=== PATIENT | female | born 1985 | race African-American/Black ===

== ENCOUNTER 2020-01-29 23:03 | Emergency (ER) | payer SELFPAY ==
[2020-01-29] MEDS ORDERED: Ondansetron ODT 4 MG TAB ONE (23:28)
[2020-01-29 23:49] LABS: #Basophils 0.1 thou/uL (0.0-0.2); #Eosinphils 0.1 thou/uL (0.0-0.7); #Lymphocytes 2.4 thou/uL (1.20-3.40); #Monocytes 0.6 thou/uL (0.11-0.59); %Basophils 0.9 % (0.0-1.0); %Eosinophils 0.9 % (0.0-10.0); %Lymphocytes 26.2 % (21.0-51.0); %Monocytes 6.9 % (0.0-10.0); %Neutrophils 65.1 % (42.0-75.0); Hemoglobin 11.6 g/dL (12.0-16.0); Mean Corpuscular HGB CONC 32.4 g/dL (32.0-36.0); Mean Corpuscular Hemoglobin 28.2 pg (27.0-31.0); Mean Platelet Volume 8.3 fL (7.4-10.4); Platelet Count 395 thou/uL (130-400); RBC Distribution Width 12.3 % (11.5-14.5); White Blood Cell (WBC) Count 9.3 thou/uL (4.8-10.8)
--- NOTE | 2020-01-30 07:45 | ULT ---
PRELIMINARY REPORT/[facility]/EMERGENCY AFTER HOURS PROCEDURE EXAM: US Obstetrical, Complete <14 weeks CLINICAL HISTORY: Pelvic pain that radiates to lt flank, N/V, vaginal spotting TECHNIQUE: Transabdominal imaging of the maternal pelvis and a <14 week gestation with image documentation. COMPARISON: None provided. FINDINGS: GESTATION: An intrauterine gestation is noted with a CRL of 2.4 cm corresponding to 9 weeks 1 day with a h eartbeat of 178 bpm. A small jc-gestational hemorrhage is noted. UTERUS: Unremarkable. No myometrial mass. Measures 12.7 x 4.3 x 6.6 cm CERVIX: Closed. Unremarkable. OVARIES: Unremarkable. No mass. A 1.3 cm complex RIGHT ovarian cyst is noted. FREE FLUID: No free fluid. IMPRESSION: Single viable intrauterine . Small subchorionic hemorrhage. ELECTRONICALLY SIGNED BY: Cong Camacho MD Jan 30, 2020 12:47:14 AM CDT This report is intended for review by the ordering physician only, in accordance of law. If you recei ve this report in error, please call [facility] at [phone]. FINAL REPORT PELVIC ULTRASOUND: PROVIDED CLINICAL HISTORY: Pelvic pain COMPARISON: None FINDINGS/IMPRESSION: Agree with the preliminary interpretation given by [facility]. Transcribed Date/Time: 01/30/2020 7:48 AM
== END 2020-01-30 01:04 | disposition home or self-care (01) ==
LOC: ERS 23:03
DX: O20.9 Hemorrhage in early pregnancy, unspecified (principal); Z3A.09 9 weeks gestation of pregnancy; Z87.891 Personal history of nicotine dependence
CPT/HCPCS: 36415; 76856; 85025; 86900; 86901; 93976; 99284; Q0162

== ENCOUNTER 2020-06-02 08:09 | Outpatient (CLI) | payer MEDICAID ==
--- NOTE | 2020-06-07 13:52 | ULT ---
ULTRASOUND OBSTETRICAL COMPLETE: DATE: 06/02/2020 HISTORY: ICD-10: "O09.93, high-risk in third trimester. Cervical length, complete anatomy, size and dates" FINDINGS: Maternal adnexa: Not visualized. number: harris lie: Cephalic Maternal cervix: 3 cm. Closed. Placenta: Posterior. No placenta previa. Incidental finding of placental lakes. Amniotic fluid volume: AZAM = 10.5 cm heart rate: 147 bpm The following anatomy is visualized, with no evidence of anomalies: Head, cerebellum, lateral ventricles, four-chamber heart, stomach, kidneys, cord insertion, bladder, cervical spine, thoracic spine, lumbar spine, sacrum, nose and lips, upper extremities, lower extremities, and three-vessel cord. biometry: Biparietal diameter (BPD): 6.4 cm 26 w 0 d Head circumference (HC): 23.9 cm 26 w 0 d Abdominal circumference (AC): 21.7 cm 26 w 1 d Femur length (FL): 4.8 cm 26 w 0 d Average ultrasound age (AUA): 26 w 1 d Estimated date of delivery (ROSA): 09/07/2020 Estimated weight (EFW): 880 g +/- 120 g IMPRESSION: 1) Live late 2nd trimester intrauterine gestation. 2) Estimated gestational age of 26 weeks, 1 days 3) Vertex lie. 4) no anatomic abnormality identified.
== END 2020-06-02 08:10 | disposition home or self-care (01) ==
LOC: BICULT 08:09
PROVIDERS: ATTEND Nurse Practitioner
DX: O09.93 Supervision of high risk pregnancy, unspecified, third trimester (principal); Z3A.26 26 weeks gestation of pregnancy
CPT/HCPCS: 76805

== ENCOUNTER 2020-07-30 11:27 | Day surgery (SDC) | payer OTHER, SELFPAY ==
[2020-07-30] MEDS ORDERED: hydrALAZINE 20 MG/ML VIAL SLOW IVP PRN (11:53)
[2020-07-30 12:58] VITALS: BMI 34.3
[2020-07-31] MEDS ORDERED: FLU VACC QS2020-21(6MOS UP)/PF 60 MCG/0.5 ML SYRINGE IM ONE (09:00)
== END 2020-07-30 13:15 | disposition home or self-care (01) ==
LOC: L&D/OP 11:27
PROVIDERS: ATTEND Family Medicine
DX: O36.5930 Maternal care for other known or suspected poor fetal growth, third trimester, not applicable or unspecified (principal); O24.410 Gestational diabetes mellitus in pregnancy, diet controlled; O34.219 Maternal care for unspecified type scar from previous cesarean delivery; O09.33 Supervision of pregnancy with insufficient antenatal care, third trimester; Z3A.35 35 weeks gestation of pregnancy
CPT/HCPCS: 76815; 76819; 99281

== ENCOUNTER 2020-08-27 10:04 | Outpatient (CLI) | payer SELFPAY ==
[2020-08-28 02:31] LABS: SARS-CoV-2 PCR by NAA Not Detected (NotDetected)
== END 2020-08-27 10:05 | disposition home or self-care (01) ==
LOC: LABBT 10:04
PROVIDERS: ATTEND Family Medicine
DX: Z20.822 Contact with and (suspected) exposure to COVID-19 (principal)
CPT/HCPCS: 87635; U0003; U0005